=== PATIENT | female | born 1945 | race Caucasian/White ===

== ENCOUNTER 2020-05-12 20:58 | Observation (INO) ==
[2020-05-12] MEDS ORDERED: IOPAMIDOL 100 ML BOTTLE IV ONE (20:59)
[2020-05-12 21:33] LABS: POC Pro Time 11.9 sec (11.9-14.5)
[2020-05-12 21:34] LABS: POC Blood Urea Nitrogen 17 mg/dl (8-23); POC CO2 23 mmol/L (22-30); POC Calcium, Ionized 1.22 mmol/L (1.16-1.32); POC Chloride 105 mmol/L (96-108); POC Creatinine 0.8 mg/dl (0.6-1.1); POC Glucose, Random 125 mg/dL (70-105); POC Potassium 3.9 mmol/L (3.3-5.1); POC Sodium 141 mmol/L (133-145)
--- NOTE | 2020-05-12 21:34 | Emergency Department Note ---
Neuro HPI General Chief Complaint: Stroke Symptoms Stated Complaint: weakness, left sided Time Seen by Provider: 05/12/20 21:32 Source: patient Mode of arrival: ambulatory Limitations: no limitations History of Present Illness HPI Narrative: Narrative: This patient began having some left-sided weakness yesterday that was intermittent. About noon today she started having the symptoms again. Again they were intermittent and occurred several times. However at this time she is asymptomatic and her NIH score is 0. She does have a history of a brain aneurysm diagnosed last November. This sounds like she is being followed for this and has not had any therapy for it. She currently has no headache. Related Data Home Medications Medication Instructions Recorded Confirmed furosemide 20 mg tablet 20 mg PO QDAY PRN 01/01/20 05/12/20 losartan 25 mg tablet 25 mg PO QDAY 01/01/20 05/12/20 hydralazine 10 mg tablet 10 mg PO .COMPLEX 04/08/20 05/12/20 atenolol 50 mg PO QDAY 05/12/20 05/12/20 Previous Rx's Medication Instructions Recorded thyroid (pork) 15 mg tablet 15 mg PO QDAY #30 tab 04/21/20 thyroid (pork) 60 mg tablet 60 mg PO QDAY #30 tab 04/21/20 Allergies Allergy/AdvReac Type Severity Reaction Status Date / Time carvedilol AdvReac Intermediate heart Verified 05/12/20 21:08 palpitations Review of Systems ROS ROS Narrative: Narrative: All systems ED: reviewed and negative except as stated. PFSH Narrative Patient History Narrative: Narrative: Medical/Surgical/Family History All Active Problems (Updated 05/13/20 @ 00:05 by Sam Steward MD) Brain TIA (Acute) Hypothyroidism (Chronic) Fatigue (Chronic) Hypertension (Acute) Social History Smoking Status: Never smoker Exam Narrative Narrative: Narrative: General Limitations: no limitations Head Head: atraumatic, normocephalic and normal inspection Eye Eye: Present normal appearance, PERRL and EOMI ENT ENT: Present normal exam Neck Neck: Present normal inspection Chest Chest: Present normal inspection and symmetric chest wall rise Respiratory Respiratory: Present normal lung sounds bilaterally; Absent respiratory distress, rales/crackles and wheezes Cardiovascular Cardiovascular: Present regular rate, normal rhythm and normal heart sounds Adbominal Abdominal: Present soft; Absent distention and tenderness Extremities Extremities: Absent pedal edema and pretibial edema Neurological Neurological: Present alert Expanded Neurological Speech: Present fluid speech CRANIAL NERVES: facial palsy (VII): Normal CEREBELLAR FUNCTION: normal gait Motor strength - LUE: 5/5 Motor strength - RUE: 5/5 Motor strength - LLE: 5/5 Motor strength - RLE: 5/5 Course Vital Signs Vital signs: Vital Signs Pulse Rate 82 05/12/20 21:04 Respiratory Rate 19 05/12/20 21:04 Blood Pressure 177/76 05/12/20 21:04 Pulse Oximetry (%) 98 05/12/20 21:04 Pulse Rate 63 05/12/20 23:31 Respiratory Rate 19 05/12/20 23:31 Blood Pressure 152/81 05/12/20 23:31 Pulse Oximetry (%) 96 05/12/20 23:31 MDM MDM Narrative Medical decision making narrative: Narrative: Patient's CT was unremarkable 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 There was no other vessel occlusion was notable. Patient remained asymptomatic and an NIH score of 0 here in the emergency room. The patient is not on aspirin or statin and the stroke neurologist thought she should be on both of those and perhaps be observed for 24 hours. Patient is reluctant to go to [place] and pursue surgery as she was told it was only 45% successful. I did discuss the case with Dr. Arreola and she will be admitted to the hospital observation [facility]. Lab Data Lab results reviewed: Yes I reviewed the patient's lab results. Result diagrams: 05/12/20 21:25 05/12/20 21:25 Labs: Lab Results 05/12/20 05/12/20 05/12/20 Range/Units 21:25 21:25 21:25 WBC 5.7 (4.50-11.00) K/mcL RBC 4.15 (3.59-5.38) M/mcL Hgb 13.6 (11.2-15.7) g/dL Hct 38.7 (34.1-44.9) % POC Hct 38.0 (36.0-48.0) % MCV 93.3 (80.0-100.0) fL MCH 32.8 (26.0-34.0) pg MCHC 35.1 (31.0-36.0) g/dL RDW 11.8 (11.5-14.5) % Plt Count 191 (140-440) K/mcL MPV 10.3 (7.4-10.4) fL Gran % 58.2 (38.0-78.0) % Lymph % (Auto) 28.6 (15.5-49.0) % [place] % (Auto) 9.2 (1.0-12.0) % Eos % (Auto) 3.8 (0.0-7.0) % Baso % (Auto) 0.2 (0.0-2.0) % Gran # 3.34 (1.80-8.00) K/mcL Lymph # (Auto) 1.64 (1.50-4.80) K/mcL [place] # (Auto) 0.53 (0.10-0.90) K/mcL Eos # (Auto) 0.22 (0.00-0.70) K/mcL Baso # (Auto) 0.01 (0.00-0.30) K/mcL POC PT 11.9 (11.9-14.5) sec POC INR 1.0 (0.9-1.2) APTT 27 (20-37) sec POC Sodium 141 (133-145) mmol/L Sodium 140 (133-145) mmol/L POC Potassium 3.9 (3.3-5.1) mmol/L Potassium 3.8 (3.3-5.1) mmol/L POC Chloride 105 (96-108) mmol/L Chloride 105 (96-108) mmol/L Carbon Dioxide 22 (22-30) mmol/L POC Total CO2 23 (22-30) mmol/L Anion Gap 13.0 (8-16) POC BUN 17 (8-23) mg/dl BUN 16 (8-23) mg/dl Creatinine 0.9 (0.6-1.1) mg/dl POC Creatinine 0.8 (0.6-1.1) mg/dl GFR Calculation 64 Glucose 127 H (70-105) mg/dL POC Glucose 125 H (70-105) mg/dL Calcium 9.7 (8.6-10.4) mg/dl POC WB Ioniz Calcium 1.22 (1.16-1.32) mmol/L Total Bilirubin 0.5 (0.0-1.0) mg/dL AST 22 (0-37) U/l ALT 9 (0-40) U/l Alkaline Phosphatase 47 (39-117) U/L Troponin T (0-0.03) ng/ml Total Protein 6.8 (5.9-8.4) gm/dL Albumin 4.2 (3.2-5.2) gm/dL Globulin 2.6 (2.2-3.7) gm/dL Albumin/Globulin Ratio 1.6 (1.0-2.3) Urine Color Urine Appearance Urine pH (5.0-9.0) Ur Specific [place] (1.000-1.035) Urine Protein (NEG) mg/dL Urine Glucose (UA) (NEG) mg/dL Urine Ketones (NEG) mg/dL Urine Occult Blood (<0.03) mg/dL Urine Nitrate (NEG) Urine Bilirubin (NEG) mg/dL Urine Urobilinogen (NEG) mg/dL Ur Leukocyte Esterase (NEG) /uL Ur Culture Indicated? 05/12/20 05/12/20 Range/Units 21:25 22:50 WBC (4.50-11.00) K/mcL RBC (3.59-5.38) M/mcL Hgb (11.2-15.7) g/dL Hct (34.1-44.9) % POC Hct (36.0-48.0) % MCV (80.0-100.0) fL MCH (26.0-34.0) pg MCHC (31.0-36.0) g/dL RDW (11.5-14.5) % Plt Count (140-440) K/mcL MPV (7.4-10.4) fL Gran % (38.0-78.0) % Lymph % (Auto) (15.5-49.0) % [place] % (Auto) (1.0-12.0) % Eos % (Auto) (0.0-7.0) % Baso % (Auto) (0.0-2.0) % Gran # (1.80-8.00) K/mcL Lymph # (Auto) (1.50-4.80) K/mcL [place] # (Auto) (0.10-0.90) K/mcL Eos # (Auto) (0.00-0.70) K/mcL Baso # (Auto) (0.00-0.30) K/mcL POC PT (11.9-14.5) sec POC INR (0.9-1.2) APTT (20-37) sec POC Sodium (133-145) mmol/L Sodium (133-145) mmol/L POC Potassium (3.3-5.1) mmol/L Potassium (3.3-5.1) mmol/L POC Chloride (96-108) mmol/L Chloride (96-108) mmol/L Carbon Dioxide (22-30) mmol/L POC Total CO2 (22-30) mmol/L Anion Gap (8-16) POC BUN (8-23) mg/dl BUN (8-23) mg/dl Creatinine (0.6-1.1) mg/dl POC Creatinine (0.6-1.1) mg/dl GFR Calculation Glucose (70-105) mg/dL POC Glucose (70-105) mg/dL Calcium (8.6-10.4) mg/dl POC WB Ioniz Calcium (1.16-1.32) mmol/L Total Bilirubin (0.0-1.0) mg/dL AST (0-37) U/l ALT (0-40) U/l Alkaline Phosphatase (39-117) U/L Troponin T < 0.01 (0-0.03) ng/ml Total Protein (5.9-8.4) gm/dL Albumin (3.2-5.2) gm/dL Globulin (2.2-3.7) gm/dL Albumin/Globulin Ratio (1.0-2.3) Urine Color Colorless Urine Appearance Clear Urine pH 6.0 (5.0-9.0) Ur Specific [place] 1.006 (1.000-1.035) Urine Protein Neg (NEG) mg/dL Urine Glucose (UA) Negative (NEG) mg/dL Urine Ketones Neg (NEG) mg/dL Urine Occult Blood Neg (<0.03) mg/dL Urine Nitrate Neg (NEG) Urine Bilirubin Neg (NEG) mg/dL Urine Urobilinogen Neg (NEG) mg/dL Ur Leukocyte Esterase Neg (NEG) /uL Ur Culture Indicated? No Radiology Data Radiology results reviewed: Yes I reviewed the patient's radiology results. Discharge Plan Patient/Caregiver Discharge Instructions Pt seen by FIRE PROTECTION SPECIALIST/PA only: No Clinical Impression: Brain TIA Patient Disposition: Xfer As Outpt/Obs ([facility]) Follow up with: Tamela Patel [Primary Care Provider] - Prescriptions: No Action losartan 25 mg tablet 25 mg PO QDAY RF: 0 furosemide 20 mg tablet 20 mg PO QDAY PRN (Reason: weight gain) RF: 0 hydralazine 10 mg tablet 10 mg PO .COMPLEX RF: 0 thyroid (pork) [FIRE PROTECTION SPECIALIST Thyroid] 60 mg tablet 60 mg PO QDAY Qty: 30 RF: 2 thyroid (pork) [FIRE PROTECTION SPECIALIST Thyroid] 15 mg tablet 15 mg PO QDAY Qty: 30 RF: 2 atenolol 100 mg tablet 50 mg PO QDAY RF: 0
[2020-05-12 22:13] LABS: Basophils # (Auto) 0.01 K/mcL (0.00-0.30); Basophils % (Auto) 0.2 % (0.0-2.0); Eosinophils # (Auto) 0.22 K/mcL (0.00-0.70); Eosinophils % (Auto) 3.8 % (0.0-7.0); Granulocytes % (Auto) 58.2 % (38.0-78.0); Hematocrit 38.7 % (34.1-44.9); Hemoglobin 13.6 g/dL (11.2-15.7); Lymphocytes # (Auto) 1.64 K/mcL (1.50-4.80); Lymphocytes % (Auto) 28.6 % (15.5-49.0); Mean Cell Volume 93.3 fL (80.0-100.0); Mean Corpuscular HGB Conc 35.1 g/dL (31.0-36.0); Mean Platelet Volume 10.3 fL (7.4-10.4); Monocytes # (Auto) 0.53 K/mcL (0.10-0.90); Monocytes % (Auto) 9.2 % (1.0-12.0); Platelet Count 191 K/mcL (140-440); RBC 4.15 M/mcL (3.59-5.38); Red Cell Distribution Width 11.8 % (11.5-14.5); WBC 5.7 K/mcL (4.50-11.00)
[2020-05-12 23:01] LABS: Appearance,Urine CLEAR; Bilirubin,Urine NEG (NEG); Color,Urine COLORLESS; Culture Indicated,Urine NO; Glucose,Urine (UA) NEGATIVE (NEG); Ketones,Urine NEG (NEG); Leukocyte Esterase,Urine NEG /uL (NEG); Nitrate,Urine NEG (NEG); Protein,Urine NEG (NEG); Specific Gravity,Urine 1.006 (1.000-1.035); Urine Blood NEG mg/dL (<0.03); Urobilinogen,Urine NEG (NEG)
[2020-05-12 23:05] LABS: ALT/SGPT 9 U/l (0-40); AST/SGOT 22 U/l (0-37); Albumin 4.2 gm/dL (3.2-5.2); Albumin/Globulin Ratio 1.6 (1.0-2.3); Alkaline Phosphatase 47 U/L (39-117); Bilirubin,Total 0.5 mg/dL (0.0-1.0); Blood Urea Nitrogen 16 mg/dl (8-23); Calcium 9.7 mg/dl (8.6-10.4); Carbon Dioxide 22 mmol/L (22-30); Chloride 105 mmol/L (96-108); Globulin 2.6 gm/dL (2.2-3.7); Glomerular Filtration Rate 64; Glucose 127 mg/dL (70-105)
[2020-05-13] MEDS ORDERED: ATORVASTATIN 40 MG TABLET PO ONE (00:05)
[2020-05-13] MEDS ORDERED: ASPIRIN 81 MG TAB.CHEW CHEWED ONE (00:05)
--- NOTE | 2020-05-13 06:10 | Cat Scan Report ---
INDICATION: code stroke COMPARISON: None. TECHNIQUE: Axial noncontrast-enhanced images through the brain. Sagittally and coronally reformatted images. FINDINGS: The examination was initially interpreted by [facility] Cerebral hemispheres:Negative. No intra-axial abnormality. No intra-axial hematoma. No localized mass effect. Brain volume is within normal limits. No hydrocephalus. There is mild periventricular white matter abnormality consistent with small vessel ischemic change in this 74-year-old female Brainstem and cerebellum:No intra-axial abnormality Extra-axial:No acute hemorrhage. No subdural or epidural hematoma. No subarachnoid hemorrhage. Basilar cisterns are normal. There is a focal density in the anterior right middle cranial fossa. This could be a right middle cerebral artery aneurysm. CTA is pending Calvarial:No calvarial fracture. No lytic lesion Temporal bones are negative. No destructive lesions Soft tissue:Orbits and visualized facial soft tissues are grossly normal. IMPRESSION: 1. Mild periventricular white matter abnormality consistent with small vessel ischemic change. No acute or focal abnormality 2. No intracranial hemorrhage 3. Possible right middle cerebral artery aneurysm The exam was performed using radiation dose optimization techniques including, but not limited to, automated exposure control, adjustment of the mA and/or kV according to patient size and use of iterative reconstruction technique. Interpreted and Authenticated by: Shreyas Huggins 05/13/20
[2020-05-13] MEDS ORDERED: FUROSEMIDE 20 MG TABLET PO PRN (08:05)
[2020-05-13] MEDS ORDERED: hydrALAZINE 10 MG TABLET PO PRN (08:15)
[2020-05-13] MEDS ORDERED: BISACODYL 10 MG SUPP.RECT PR PRN (08:18)
[2020-05-13] MEDS ORDERED: ONDANSETRON 4 MG/2 ML VIAL IV PRN (08:18)
[2020-05-13] MEDS ORDERED: ONDANSETRON 4 MG ODT TABLET SL PRN (08:18)
[2020-05-13] MEDS ORDERED: ACETAMINOPHEN 325 MG TABLET PO PRN (08:18)
[2020-05-13] MEDS ORDERED: guaiFENesin/CODEINE 10 ML UDC PO PRN (08:18)
[2020-05-13] MEDS ORDERED: POLYETHYLENE GLYCOL 3350 17 GM PACKET PO PRN (08:18)
[2020-05-13] MEDS ORDERED: MELATONIN 3 MG TABLET PO PRN (08:18)
[2020-05-13] MEDS ORDERED: MAGNESIUM SULFATE 2 GM/50 ML BAG IV PRN (08:18)
[2020-05-13] MEDS ORDERED: POTASSIUM CHLORIDE 20 MEQ PACKET PO PRN (08:18)
--- NOTE | 2020-05-13 08:18 | Internal Med History&Physical ---
HPI History of Present Illness Patient information: Note initiated : 05/13/20 at 8:05 am Service Date, if different from initiated Date: [] Patient: Esmer Teague a 74 y/o F admitted on 05/13/20 for weakness, left sided. Chief Complaint: Left-sided weakness History of present illness: Ms. Teague is a 74 year old F with a history of hypertension/right MCA aneurysm diagnosed in November 2019 was being evaluated by brisket puller/neurosurgery at [place]. Patient is due for follow-up with a neurologist Dr. Montalvo on 05/13. Patient presents to the ER after she started experiencing symptoms of left-sided weakness/instability along with discomfort left side of head. Her symptoms started abruptly on 05/11 around noon which lasted for 7 to 8 minutes. She noted dizziness, diminished discomfort head along with left-sided weakness to the point her knee would almost buckle and subsequently sat on the bed for a period of time after her symptoms totally resolved. She lives alone. She did not seek medical attention however on 05/14 after she returned from work around she started experiencing similar symptoms including left-sided arm and leg weakness, staggering gait. She subsequently drove herself to the ER. Initial work-up was unremarkable except for presence of right MCA sided aneurysm. Stroke neurologist was consulted and recommended observation. Patient refused to be transferred to [place] for neurosurgical intervention. Notably she has been evaluated by neurosurgery at [place] and was offered surgical treatment of aneurysm with a success rate of 40 to 45%. Patient apparently refused. She subsequently have another neuroimaging in March. She also has been battling suboptimally controlled hypertension and has been following up with Dr. De Luna at [place] cardi[facility]. She is currently on atenolol/losartan/as needed hydralazine. She further denies fever, diplopia, diarrhea, dysuria, chest pain or shortness of breath. She is fairly anxious with the symptoms. By time of evaluation in the ER her symptoms have totally resolved with NIH score of 0 Hospitalist service was consulted for admission and overnight observation Review of systems A 10 point review system was performed and is negative except for ones discussed above Past medical history * Hypertension * Right MCA aneurysm CT 11/13/follow-up MRI with contrast 03/25 with 9 mm MCA aneurysm * PVCs * Anxiety disorder * Hypothyroidism * GERD * Mixed hyperlipidemia Family history * Nonremarkable Social history * Works as [employer] * Has a daughter * Lives alone * No history of smoking, occasional alcohol use PFSH PFSH Social History (Updated 04/13/20 @ 16:12 by Tamela Patel) smoking status: Never smoker MEDS/ALLERGIES Home Medications and Allergies Home Medications Medication Instructions Recorded Confirmed Type furosemide 20 mg tablet 20 mg PO QDAY PRN 01/01/20 05/12/20 History losartan 25 mg tablet 25 mg PO QDAY 01/01/20 05/12/20 History hydralazine 10 mg tablet 10 mg PO .COMPLEX 04/08/20 05/12/20 History thyroid (pork) 15 mg tablet 15 mg PO QDAY #30 tab 04/21/20 05/12/20 Rx thyroid (pork) 60 mg tablet 60 mg PO QDAY #30 tab 04/21/20 05/12/20 Rx atenolol 50 mg PO QDAY 05/12/20 05/12/20 History Allergies Allergy/AdvReac Type Severity Reaction Status Date / Time carvedilol AdvReac Intermediate heart Verified 05/12/20 21:08 palpitations EXAM Constitutional Vitals: Temp Pulse Resp BP Pulse Ox 97.4 F 57 L 18 158/65 97 05/13/20 04:37 05/13/20 04:37 05/13/20 04:37 05/13/20 04:37 05/13/20 04:37 Head normocephalic Oral cavity dry No ear nose discharge neck no lymphadenopathy S1-S2 regular rhythm no murmur Diminished breath sounds bases Abdomen soft nontender Lower extremity no sinus clubbing no joint swelling Skin no suspicious lesion Psych anxious but alert Neuro nonfocal symmetrical strength sensation upper lower extremities DATA Data Completed and Pending Labs on day of discharge: Labs from last 24 hours 05/12/20 05/12/20 05/12/20 22:50 21:25 21:25 WBC RBC Hgb Hct POC Hct 38.0 MCV MCH MCHC RDW Plt Count MPV Gran % Lymph % (Auto) [place] % (Auto) Eos % (Auto) Baso % (Auto) Gran # Lymph # (Auto) [place] # (Auto) Eos # (Auto) Baso # (Auto) POC PT POC INR APTT POC Sodium 141 Sodium 140 POC Potassium 3.9 Potassium 3.8 POC Chloride 105 Chloride 105 Carbon Dioxide 22 POC Total CO2 23 Anion Gap 13.0 POC BUN 17 BUN 16 Creatinine 0.9 POC Creatinine 0.8 GFR Calculation 64 Glucose 127 H POC Glucose 125 H Calcium 9.7 POC WB Ioniz Calcium 1.22 Total Bilirubin 0.5 AST 22 ALT 9 Alkaline Phosphatase 47 Troponin T < 0.01 Total Protein 6.8 Albumin 4.2 Globulin 2.6 Albumin/Globulin Ratio 1.6 Urine Color Colorless Urine Appearance Clear Urine pH 6.0 Ur Specific [place] 1.006 Urine Protein Neg Urine Glucose (UA) Negative Urine Ketones Neg Urine Occult Blood Neg Urine Nitrate Neg Urine Bilirubin Neg Urine Urobilinogen Neg Ur Leukocyte Esterase Neg Ur Culture Indicated? No 05/12/20 05/12/20 21:25 21:25 WBC 5.7 RBC 4.15 Hgb 13.6 Hct 38.7 POC Hct MCV 93.3 MCH 32.8 MCHC 35.1 RDW 11.8 Plt Count 191 MPV 10.3 Gran % 58.2 Lymph % (Auto) 28.6 [place] % (Auto) 9.2 Eos % (Auto) 3.8 Baso % (Auto) 0.2 Gran # 3.34 Lymph # (Auto) 1.64 [place] # (Auto) 0.53 Eos # (Auto) 0.22 Baso # (Auto) 0.01 POC PT 11.9 POC INR 1.0 APTT 27 POC Sodium Sodium POC Potassium Potassium POC Chloride Chloride Carbon Dioxide POC Total CO2 Anion Gap POC BUN BUN Creatinine POC Creatinine GFR Calculation Glucose POC Glucose Calcium POC WB Ioniz Calcium Total Bilirubin AST ALT Alkaline Phosphatase Troponin T Total Protein Albumin Globulin Albumin/Globulin Ratio Urine Color Urine Appearance Urine pH Ur Specific [place] Urine Protein Urine Glucose (UA) Urine Ketones Urine Occult Blood Urine Nitrate Urine Bilirubin Urine Urobilinogen Ur Leukocyte Esterase Ur Culture Indicated? A/P Time Spent With Patient Time: * Left-sided weakness-right MCA aneurysm. Negative neuroimaging. Patient started on aspirin/statin ER. Stroke neurologist consulted. Patient refused transfer to tertiary center for neurosurgery consultation. observation admit/hypertension management. * History of hypertension continue primary questionably ARB/atenolol/hydralazine * History of hypothyroidism continue thyroxine * Full code * Prophylaxis-ambulation Plan * Observation telemetry admit * Neurochecks * Pre-existing medical mission management home meds * Neurology consult * Possible discharge in 24 hours QUALITY Stroke Onset of Symptoms Date: 05/11/20 Onset of Symptoms Time: 10:00 Symptom Onset Unknown: No VTE Deep Vein Thrombosis/Pulmonary Embolism Present on Admission: No
[2020-05-13] MEDS ORDERED: LOSARTAN 25 MG TABLET PO SCH (09:00)
[2020-05-13] MEDS ORDERED: ASPIRIN 81 MG TAB.CHEW CHEWED SCH (09:00)
[2020-05-13] MEDS ORDERED: THYROID, PORK 60 MG TABLET PO SCH (09:00)
[2020-05-13] MEDS ORDERED: HEPARIN 5,000 UNIT/ML VIAL SQ SCH (09:00)
[2020-05-13] MEDS ORDERED: DOCUSATE SODIUM 100 MG CAPSULE PO SCH (09:00)
[2020-05-13] MEDS ORDERED: MULTIVIT,THER IRON,CA,FA & MIN 1 TABLET PO SCH (09:00)
[2020-05-13] MEDS ORDERED: ATENOLOL 25 MG TABLET PO SCH ×2 (09:00→21:00)
[2020-05-13] MEDS ORDERED: THYROID 15 MG PO SCH (09:00)
--- NOTE | 2020-05-13 11:00 | Internal Med Progress Note ---
SUBJECTIVE Subjective Patient information: Note initiated : 05/13/20 at 10:56 am Service Date, if different from initiated Date: [] Patient: Esmer Teague 74 y/o F admitted on 05/13/20 for weakness, left sided. Chief Complaint: [] Interval history: Interval history: Mr. Gorman is a 61 year old M Who was brought in by his for fever shaking chills confusion. Patient had a left second toe amputation by Dr. Matias on Monday. Patient notes that since that time is had increasing fevers and shaking chills. Increasing weakness. His noted him to be confused today -patient thought it was Monday then he thought was 11 PM and then driving on very just seemed out of it. Monday night after the surgery patient slept in recliner and that evening his dog licked off his bandages. Patient has history of obstructive sleep apnea and systolic heart failure and chronic kidney disease. He uses a CPAP machine. Reports his oxygen does run low at times. Does have chronic shortness of breath but that has not changed recently and he has a chronic smoker's cough and that has not changed recently. He had a MUGA 2017 showed an EF of 45% which is improvement of his previous scan. Is not have any cardiac stents. Smokes a pack per day. He also has COPD and has inhalers at home. In the ED he was found to have a fever he was tachycardic tachypneic. Blood pressure was stable. Oxygen saturations around 90. Chest x-ray with bilateral opacities with no recent chest x-rays to compare to, last was 2012. His creatinine was found to be above baseline and he appeared dry in the ED. Lactate was within normal limits. And troponin was unremarkable. Urine with hyaline casts and ketones. Mild hyponatremia. And leukocytosis. His toe appeared Infected. She reports drainage since surgery and malodorous smell recently. Dr. Alvarado was contacted to evaluate the patient in the ED. 05/08 States he slept well but felt a little bit crummy with his chronic back pain this morning. Chest pain medication helped out. Febrile overnight. Blood cultures growing gram-positive cocci. On Vanco. 05/09 Right foot with abscess on imaging, Dr. Alvarado aware and plans for debridement. Blood glucose elevated on admit, clarify medication and adjusting insulin. Creatinine bumped this morning. Noted she did have low blood pressure last nigh t and also nurse notes he is not eating much because he does not want to go to the bathroom on the commode. His home medication is listed as carvedilol and metoprolol-clarifying this he says he does recognize carvedilol but not sure about metoprolol. Awaiting echo results. Otherwise feeling better no new complaints other than some nerve pain on his right lateral thigh. 05/10 Patient had incision and drainage of both feet yesterday. Patient doing fine today. Slept well. No new complaints. Awaiting repeat blood cultures. 05/11 Slept all right. Has this chronic cough. Chronic shortness of breath. Renal function improved after IV fluids the other day. Does also have atelectasis and encourage incentive spirometry. One blood culture from the fourth is growing gram-positive cocci. Repeat blood cultures this morning 05/12-patient doing well. Status post debridement. On Zosyn/vancomycin for MRSA bacteremia/polymicrobial foot abscess. Status post left second toe amputation with bilateral incision drainage of feet performed on 05/07. Podiatry and ID on board. No overnight fever chills. Sitting in chair, no active concerns. White count 1.3, renal function stable, creatinine down to 1 from 1.5. LFTs downtrending. Continue PT OT/nutrition support. 05/13-patient seen in room. Reviewed case with podiatry. Podiatry recommends outpatient follow-up for continued wound management/antibiotics as per ID. On ertapenem as per ID. Likely discharge in [address] PICC line today. No overnight fever chills. Comprehensive panel awaited. Constitutional Vitals: Vital Signs Temp Pulse Resp BP Pulse Ox 98.6 F 51 L 16 136/70 97 05/13/20 10:13 05/13/20 10:13 05/13/20 10:00 05/13/20 10:13 05/13/20 10:13 Period Temp Pulse Resp BP Sys/[place] Pulse Ox Last 24 Hr 97.4 F-98.6 F 51-82 10-22 136-197/65-87 96-98 Intake and Output 05/12/20 05/13/20 05/13/20 21:59 05:59 13:59 Intake Total 0 240 Balance 0 240 Weight 76.204 kg 77.791 kg Intake & Output: Intake & Output 05/12/20 05/13/20 05/13/20 21:59 05:59 13:59 Intake Total 0 240 Balance 0 240 Weight 76.204 kg 77.791 kg Intake: Oral 0 240 Other: Meal Breakfast Percent of Meal Consumed 100% OBJ DATA Labs CBC & Chem 7: 05/12/20 21:25 05/12/20 21:25 Labs: Abnormal Lab Results 05/12/20 21:25 Glucose 127 H POC Glucose 125 H Meds: Medications Acetaminophen (Tylenol) 650 mg PO Q4-6HP PRN; Protocol PRN Reason: Per Pain Protocol/Fever > 101 Aspirin (Aspirin) 81 mg CHEWED DAILY [facility] Last Admin: 05/13/20 09:20 Dose: 81 mg Documented by: Atenolol (Tenormin) 50 mg PO HS [facility] Atorvastatin Calcium (Lipitor) 40 mg PO HS [facility] Bisacodyl (Dulcolax) 10 mg ND Q2-3DAYS PRN PRN Reason: Constipation Docusate Sodium (Colace) 100 mg PO BID [facility] Last Admin: 05/13/20 09:19 Dose: 100 mg Documented by: Furosemide (Lasix) 20 mg PO QDAY PRN PRN Reason: weight gain Guaifenesin/Codeine Phosphate (Robitussin Ac) 10 ml PO Q4HP PRN PRN Reason: Cough Heparin Sodium (Porcine) (Heparin) 5,000 unit SQ Q12 [facility] Last Admin: 05/13/20 09:20 Dose: 5,000 unit Documented by: Hydralazine HCl (Apresoline) 10 mg PO TIDP PRN PRN Reason: for systolic BP over 160 Magnesium Sulfate (Magnesium Sulfate) 2 gm in 50 mls @ 50 mls/hr IV UD PRN PRN Reason: MG = or < 1.7 Iron Carb/Multivit/[place]/Folic Acid (Multivitamin W/Minerals) 1 tab PO DAILY [facility] Last Admin: 05/13/20 09:19 Dose: 1 tab Documented by: Losartan Potassium (Cozaar) 25 mg PO QDAY [facility] Last Admin: 05/13/20 09:22 Dose: Not Given Documented by: Melatonin (Melatonin 3mg Tablet) 3 mg PO HSP PRN PRN Reason: Insomnia Ondansetron HCl (Zofran Odt) 4 mg SL Q4-6HP PRN; Protocol PRN Reason: Nausea And Vomiting Ondansetron HCl (Zofran) 4 mg IV Q4-6HP PRN; Protocol PRN Reason: Nausea And Vomiting Polyethylene Glycol (Miralax) 17 gm PO DAILYP PRN PRN Reason: Constipation Potassium Chloride (Klor-Con) 40 meq PO DAILYP PRN PRN Reason: K+ < 3.5 Senna/Docusate Sodium (Senna Plus Tablet) 1 tab PO HS [facility]ORY Sodium Chloride (Saline Flush) 10 ml IV Q8 [facility] Thyroid (Thyroid) 75 mg PO QDAY [facility] Last Admin: 05/13/20 09:23 Dose: Not Given Documented by: A/P Time Spent With Patient Time: -Right foot cellulitis/abscess & Infected left 2nd toe stump/osteomyelitis, DM complication: wound also licked by his dog -s/p b/l I&D (05/09), MRSA on culture. Managed by ID/podiatry -?Micrococcus/MRSA bacteremia, no vegetations. On antibiotics per ID. Switch to daptomycin -*Sepsis with endorgan dysfunction clinically improving. Renal function back to baseline. Mental status improved. -?TAI on CKD III: follows with project developer in [place], 2/2 severe sepsis related endorgan dysfunction. Has been on NSAID/Diuretics/ACEI -Improved and now creatinine at 1 -?*borderline hypoxia: has chronic dyspnea - no change. has chronic cough --CT chest unremarkable -likely restrictive component from obesity + COPD, imaging did show atelectasis ?*COPD(not on home O2, just IH's): ?*NIKA with CPAP ?DM: A1c 8.4-elevated and we are titrating basal insulin ?h/o systolic(40%)/diastolic(II)CHF nonischemic CMP: follows with Dr. Urban & Светлана Kate ARN-echo with EF 40-45% ?*HTN/HLD: ?*Tobacco abuse: ?*Psoriatic arthritis: On methotrexate ?*mild transaminitis: ?abx, check hep panel and liver u/s ?*Macrocytosis: ?MTX component, -low B12 P: ?Postoperative care per podiatry Dr. Alvarado/wound care ?Continue daptomycin per ID ?-wound care ?-pt takes both coreg and toprol, coreg held for low bp, restart at lower dose and titirate up as needed ?-hold entresto and torsemide for TAI, restart as needed ?-basal (increased lantus 25 to 30 and regular 30bid to 35bid) and SSI ?-IS, prn nebs ?-hold mtx for now ?-cont ASA/Statin ?-b12 supp ?Continue-pt/ot ?-pt would like referral to Dr. Gilmore to establish with a tent assembler ?-f/u with loader helper for adjustment in cpap settings, ?-ppx: Heparin QUALITY Stroke Onset of Symptoms Date: 05/11/20 Onset of Symptoms Time: 10:00 Symptom Onset Unknown: No VTE Deep Vein Thrombosis/Pulmonary Embolism Present on Admission: No
--- NOTE | 2020-05-13 11:12 | Discharge Summary ---
Discharge Provider Provider Patient information: Note initiated : 05/13/20 at 11:09 am Service Date, if different from initiated Date: [] Patient: Esmer Teague a 74 y/o F admitted on 05/13/20 for weakness, left sided. Chief Complaint: Left-sided weakness Date of admission: 05/13/20 00:40 Discharge date: 05/13/20 Primary care physician: Tamela Patel Consults: 05/13/20 01:10 Consult to Physician [CONS] Routine Comment: Consulting Provider: Diony Felton Reason For Exam: Physician to Consult Discharge Meds Discharge Medications Active and Home Medications: Home Medications furosemide 20 mg tablet 20 mg PO QDAY PRN 01/01/20 [History Confirmed 05/12/20 Last Taken Unknown] losartan 25 mg tablet 25 mg PO QDAY 01/01/20 [History Confirmed 05/12/20 Last Taken Unknown] hydralazine 10 mg tablet 10 mg PO .COMPLEX 04/08/20 [History Confirmed 05/12/20 Last Taken Unknown] thyroid (pork) 15 mg tablet 15 mg PO QDAY #30 tab 04/21/20 [Rx Confirmed 05/12/20 Last Taken Unknown] thyroid (pork) 60 mg tablet 60 mg PO QDAY #30 tab 04/21/20 [Rx Confirmed 05/12/20 Last Taken Unknown] atenolol 50 mg PO QDAY 05/12/20 [History Confirmed 05/12/20 Last Taken Unknown] COURSE Hospital Course Discharge diagnosis: . Time Spent with Patient Time attestation: Discharge diagnosis * Left-sided weakness-right MCA aneurysm. Negative neuroimaging. Patient started on aspirin/statin. Stroke neurologist consulted and recommended overnight observation. Patient refused transfer to tertiary center for neurosurgery consultation. Patient did well overnight with near resolution of symptoms. Case discussed with Dr. Montalvo on phone. Patient will follow-up today at 1 PM as outpatient. Discharging on aspirin 325 mg daily with advised to follow-up with neurosurgery at [place] for evaluation and MCA aneurysm intervention * History of hypertension continue primary questionably ARB/atenolol/hydralazine * History of hypothyroidism continue thyroxine Brief hospital course History of present illness: Ms. Teague is a 74 year old F with a history of hypertension/right MCA aneurysm diagnosed in November 2019 was being evaluated by braid maker/neurosurgery at [place]. Patient is due for follow-up with a neurologist Dr. Montalvo on 05/13. Patient presents to the ER after she started experiencing symptoms of left-sided weakness/instability along with discomfort left side of head. Her symptoms started abruptly on 05/11 around noon which lasted for 7 to 8 minutes. She noted dizziness, diminished discomfort head along with left-sided weakness to the point her knee would almost buckle and subsequently sat on the bed for a period of time after her symptoms totally resolved. She lives alone. She did not seek medical attention however on 05/14 after she returned from work around she started experiencing similar symptoms including left-sided arm and leg weakness, staggering gait. She subsequently drove herself to the ER. Initial work-up was unremarkable except for presence of right MCA sided aneurysm. Stroke neurologist was consulted and recommended observation. Patient refused to be transferred to [place] for neurosurgical intervention. Notably she has been evaluated by neurosurgery at [place] and was offered surgical treatment of aneurysm with a success rate of 40 to 45%. Patient apparently refused. She subsequently have another neuroimaging in March. She also has been battling suboptimally controlled hypertension and has been following up with Dr. De Luna at [place] cardiology. She is currently on atenolol/losartan/as needed hydralazine. She further denies fever, diplopia, diarrhea, dysuria, chest pain or shortness o f breath. She is fairly anxious with the symptoms. By time of evaluation in the ER her symptoms have totally resolved with NIH score of 0 Hospitalist service was consulted for admission and overnight observation 05/13-patient doing well. No overnight events. Symptoms clinically resolved. Feels back at baseline. Requesting discharge. Patient will follow-up with neurology today at 1 PM. EXAM Constitutional Vitals: Temp Pulse Resp BP Pulse Ox 98.6 F 51 L 16 136/70 97 05/13/20 10:13 05/13/20 10:13 05/13/20 10:00 05/13/20 10:13 05/13/20 10:13 Discharge Data Data Completed and Pending Labs on day of discharge: Labs from last 24 hours 05/12/20 05/12/20 05/12/20 22:50 21:25 21:25 WBC RBC Hgb Hct POC Hct 38.0 MCV MCH MCHC RDW Plt Count MPV Gran % Lymph % (Auto) [place] % (Auto) Eos % (Auto) Baso % (Auto) Gran # Lymph # (Auto) [place] # (Auto) Eos # (Auto) Baso # (Auto) POC PT POC INR APTT POC Sodium 141 Sodium 140 POC Potassium 3.9 Potassium 3.8 POC Chloride 105 Chloride 105 Carbon Dioxide 22 POC Total CO2 23 Anion Gap 13.0 POC BUN 17 BUN 16 Creatinine 0.9 POC Creatinine 0.8 GFR Calculation 64 Glucose 127 H POC Glucose 125 H Calcium 9.7 POC WB Ioniz Calcium 1.22 Total Bilirubin 0.5 AST 22 ALT 9 Alkaline Phosphatase 47 Troponin T < 0.01 Total Protein 6.8 Albumin 4.2 Globulin 2.6 Albumin/Globulin Ratio 1.6 Urine Color Colorless Urine Appearance Clear Urine pH 6.0 Ur Specific [place] 1.006 Urine Protein Neg Urine Glucose (UA) Negative Urine Ketones Neg Urine Occult Blood Neg Urine Nitrate Neg Urine Bilirubin Neg Urine Urobilinogen Neg Ur Leukocyte Esterase Neg Ur Culture Indicated? No 05/12/20 05/12/20 21:25 21:25 WBC 5.7 RBC 4.15 Hgb 13.6 Hct 38.7 POC Hct MCV 93.3 MCH 32.8 MCHC 35.1 RDW 11.8 Plt Count 191 MPV 10.3 Gran % 58.2 Lymph % (Auto) 28.6 [place] % (Auto) 9.2 Eos % (Auto) 3.8 Baso % (Auto) 0.2 Gran # 3.34 Lymph # (Auto) 1.64 [place] # (Auto) 0.53 Eos # (Auto) 0.22 Baso # (Auto) 0.01 POC PT 11.9 POC INR 1.0 APTT 27 POC Sodium Sodium POC Potassium Potassium POC Chloride Chloride Carbon Dioxide POC Total CO2 Anion Gap POC BUN BUN Creatinine POC Creatinine GFR Calculation Glucose POC Glucose Calcium POC WB Ioniz Calcium Total Bilirubin AST ALT Alkaline Phosphatase Troponin T Total Protein Albumin Globulin Albumin/Globulin Ratio Urine Color Urine Appearance Urine pH Ur Specific [place] Urine Protein Urine Glucose (UA) Urine Ketones Urine Occult Blood Urine Nitrate Urine Bilirubin Urine Urobilinogen Ur Leukocyte Esterase Ur Culture Indicated? Discharge Plan Patient/Caregiver Discharge Instructions Activity: increase activity as tolerated Diet: Regular Diet Activity Restrictions/Additional Instructions: Follow-up with neurology Dr. Betancourts at 1 PM 05/13 Continue aspirin 3 2 5 g daily Return to ER if worsening weakness/dizziness Recommend following up with cardiology/neurosurgery at [place] Prescriptions: New aspirin 325 mg tablet 325 mg PO QDAY Qty: 30 RF: 0 Continued losartan 25 mg tablet 25 mg PO QDAY RF: 0 furosemide 20 mg tablet 20 mg PO QDAY PRN (Reason: weight gain) RF: 0 hydralazine 10 mg tablet 10 mg PO .COMPLEX RF: 0 thyroid (pork) [CONTROL ROOM TECHNICIAN Thyroid] 60 mg tablet 60 mg PO QDAY Qty: 30 RF: 2 thyroid (pork) [CONTROL ROOM TECHNICIAN Thyroid] 15 mg tablet 15 mg PO QDAY Qty: 30 RF: 2 atenolol 100 mg tablet 50 mg PO QDAY RF: 0 Follow Up Plan Follow up with: Tamela Patel [Primary Care Provider] - Patient Disposition: Home, Self-Care Discharge Orders: Discharge Order (Routine); Ordered 05/13/20 Ordered By: Diony ANDERSON VTE Deep Vein Thrombosis/Pulmonary Embolism Present on Admission: No
[2020-05-13] MEDS ORDERED: 0.9 % SODIUM CHLORIDE 10 ML SYRINGE IV SCH (14:00)
[2020-05-13] MEDS ORDERED: SENNOSIDES/DOCUSATE SODIUM 1 TAB TABLET PO SCH (21:00)
[2020-05-13] MEDS ORDERED: ATORVASTATIN 40 MG TABLET PO SCH (21:00)
--- NOTE | 2020-05-14 09:40 | Cat Scan Report ---
INDICATION: stroke symptoms COMPARISON: Brain CT scan dated 05/12/2020 TECHNIQUE: Axial images were obtained through the upper chest, neck, and head during arterial phase. MIP and CPR reformatted images. 80ml Isovue 370 injected intravenously. FINDINGS: Examination was initially interpreted by [facility] AORTIC ARCH:Calcified atherosclerotic plaque. Origins of the left subclavian artery, left vertebral artery, left common carotid artery, innominate artery, right common carotid artery, right subclavian artery, right vertebral artery are negative. No origin stenosis. CAROTID ARTERIES:Right: Right common carotid artery is negative. No stenosis or occlusion. Calcified plaque at the origin of the right internal carotid artery. No significant stenosis or evidence for ulceration. Right internal carotid artery is otherwise negative. No stenosis or occlusion. No fibromuscular dysplasia or dissection. Left: Left common carotid artery is negative. No stenosis or occlusion No significant calcified plaque at the origin of left internal carotid artery. No significant stenosis. No evidence for ulceration. Left internal carotid artery is otherwise negative. There is no stenosis or occlusion. No dissection or evidence for fibromuscular dysplasia VERTEBRAL ARTERIES:Vertebral arteries are patent without stenosis or occlusion [place]:[Cavernous and supraclinoid internal carotid arteries are negative. M1 segment of the left middle cerebral artery and A1 segment of the left anterior cerebral artery are negative. No stenosis. A1 segment of the right anterior cerebral artery is negative. No stenosis. M1 segment of the right middle cerebral artery is negative. There is a wide necked irregular aneurysm at the right middle cerebral artery bifurcation. This measures 10 x 6 x 8 mm. This aneurysm is somewhat irregular in shape and has a wide neck. There is no subarachnoid or intra-axial hemorrhage. No evidence for rupture. Intracranial vertebral arteries and basilar artery are negative. Posterior cerebral arteries and superior cerebellar arteries are negative] INTRACRANIAL CIRCULATION:No intracranial branch occlusion. Dural sinuses and deep veins are normal UPPER CHEST:No pulmonary parenchymal mass or focal infiltrate. Superior mediastinum is negative NECK:No solid or cystic soft tissue mass. No pathologic lymphadenopathy. BRAIN:No acute intracranial hemorrhage. No focal attenuation abnormalities or pathologic contrast enhancement. IMPRESSION: 1. Wide necked, irregular right middle cerebral artery aneurysm. No evidence for rupture 2. Otherwise negative examination The exam was performed using radiation dose optimization techniques including, but not limited to, automated exposure control, adjustment of the mA and/or kV according to patient size and use of iterative reconstruction technique. Interpreted and Authenticated by: Shreyas Huggins 05/14/20
== END 2020-05-13 12:33 | disposition home or self-care (01) ==
LOC: ED 20:58 → MEDSUR 20:58
PROVIDERS: ADMIT Internal Medicine; ATTEND Internal Medicine